=== PATIENT | female | born 1985 | race Hispanic/Latino ===

== ENCOUNTER 2019-05-25 10:45 | Inpatient (IN) | payer BC ==
[2019-05-25 11:13] VITALS: BMI 24.8
[2019-05-25] MEDS ORDERED: HYDROcodone/Acetaminophen 5/325 mg Tablet PO PRN ×3 (11:23→17:18)
[2019-05-25] MEDS ORDERED: Lidocaine 1% (PF) 30 ML VIAL SC PRN (11:23)
[2019-05-25] MEDS ORDERED: Ibuprofen 800 MG TAB PO PRN (11:23)
[2019-05-25] MEDS ORDERED: Ondansetron PF 4 MG/2 ML Vial IVP PRN ×2 (11:23→17:18)
[2019-05-25] MEDS ORDERED: NS / Oxytocin 40 units/1000ml 1,000 ML IV PRN (11:23)
[2019-05-25] MEDS ORDERED: Methylergonovine 0.2 MG/ML VIAL IM PRN (11:23)
[2019-05-25] MEDS ORDERED: Promethazine HCl 25 MG/ML VIAL IM PRN (11:23)
[2019-05-25] MEDS ORDERED: hydrALAZINE 20 MG/ML VIAL SLOW IVP PRN ×2 (11:23→17:18)
[2019-05-25] MEDS ORDERED: Butorphanol Tartrate 1 MG/ML VIAL SLOW IVP PRN (11:23)
[2019-05-25] MEDS ORDERED: Misoprostol 200 MCG TAB PR PRN (11:23)
[2019-05-25] MEDS ORDERED: Lactated Ringer's 1,000 ML IV SCH (11:30)
[2019-05-25] MEDS ORDERED: Lidocaine 1% (PF) 30 ML VIAL ONE (11:32)
[2019-05-25] MEDS ORDERED: NS / Oxytocin 40 units/1000ml 1,000 ML ONE (11:32)
[2019-05-25 11:40] LABS: Hemoglobin 13.3 g/dL (12.0-16.0); Mean Corpuscular HGB CONC 33.2 g/dL (32.0-36.0); Mean Corpuscular Hemoglobin 31.9 pg (27.0-31.0); Mean Corpuscular Volume 96.2 fL (78.0-98.0); Mean Platelet Volume 8.5 fL (7.4-10.4); Platelet Count 207 thou/uL (130-400); RBC Distribution Width 10.8 % (11.5-14.5); Red Blood Cell (RBC) Count 4.15 mill/uL (4.20-5.40); White Blood Cell (WBC) Count 11.2 thou/uL (4.8-10.8)
[2019-05-25] MEDS ORDERED: Butorphanol Tartrate 1 MG/ML VIAL ONE (11:49)
[2019-05-25 15:20] LABS: HBSAg Index 0.14 S/CO (0-0.99); Hep B Surf Ag Non-Reactive S/CO (NonReactive); Syphilis Antibody Nonreactive (Nonreactive); Syphilis Antibody Index 0.19 S/CO (<1.00 Non-Reactive)
--- NOTE | 2019-05-25 16:32 | PDOC.LDHP ---
Labor and Delivery H&P Chief complaint: contractions (with questionable loss of fluid) HPI: Started having contractions at 0500. She did yoga and had a little leaking, but that was the last time. She went to work and was having a regular contractions. At 1030 she came to L&D with regular consistent painful contractions lasting every 2-3 mins Current gestational age (weeks): 38 (2 days) Due date: 06/06/19 Dating criteria: last menstrual period (verified by 1st trimester US) Grav: 1 Para: 0 Current complications: none Abnormal US findings: No Current medications: pre- vitamins Previous surgical history: none Allergies/Adverse Reactions: Allergies Allergy/AdvReac Type Severity Reaction Status Date / Time No Known Allergies Allergy Verified 05/25/19 15:34 Social history: none - Physical Exam Vital signs reviewed and normal: yes General: breathing through contractions Lungs: nonlabored breathing Abdomen: gravid FHT: category 1 - Vaginal Exam cm dilated: 8 Effacement: 100% Station: 2+ - OB Labs Blood type: O RH: positive Antibody Screen: negative HIV: negative RPR: negative HEPSAg: negative 1 hour GCT: negative GBS: negative Urine drug screen: negative Rubella: immune - Assessment L&D Assessment: term patient in labor - Plan Plan: admit to L&D -: Low intervention protocol.
--- NOTE | 2019-05-25 16:38 | PDOC.OPDEL ---
OB Operative/Delivery Note Delivery Dr/Surgeon: Santiago Montgomery Assist: Dr. Vidal Pre-Delivery Diagnosis: active labor Procedure/Post Delivery Dx: other (shoulder dystocia) Anesthesia: none - Findings A Sex: female Weight: 8 lb 11 oz - 1 min: 1 - 5 min: 9 - Additional Findings/Plan Placenta delivered: spontaneous Repaired Obstetrical Laceration: episiotomy (with partial 3rd degree laceration. Repaired by Dr. Vidal.) Estimated blood loss: 350 EBL Compilations/Other Findings: Shoulder dystocia identified. Pt was moved from later pushing position to on her back. Octavio and suprapubic pressure failed to relieve dystocia. Dr. Vidal Called and [facility] team called to room. Wood Screw maneuver used and fetus was rotated from LOT to LINNETTE, rotating the anterior should to the oblique position. head traction applied again and dystocia unresolved. Left hand inserted into the vagina to find posterior arm. I was unable to feel low half of arm or find the wrist to deliver the posterior arm. Dr. Vidal at bedside. Multiple manuevers repeated unsuccessful. Patient was moved to end of bed which was broken down. I then cut a medial episiotomy which allowed delivery of the fetus by Dr. Vidal. The cord was clamped and cut and the was handed off to the waiting [facility] team. Cord blood was collected, then a segment for cord gas was cut. Placenta delivered spontaneously and pitocin was started in the IV. Dr. Vidal repaired the 3rd degree laceration. Post delivery plan: routine recovery
[2019-05-25] MEDS ORDERED: Lanolin Ointment 7 GM TUBE TOP PRN (17:18)
[2019-05-25] MEDS ORDERED: Bisacodyl 10 MG SUPP PR PRN (17:18)
[2019-05-25] MEDS ORDERED: Benzocaine-Menthol 82.5 ML CAN TOP PRN (17:18)
[2019-05-25] MEDS ORDERED: NS / Oxytocin 40 units/1000ml 1,000 ML IV SCH (17:18)
[2019-05-25] MEDS ORDERED: FLU VACC QS2019-20(6MOS UP)/PF 60 MCG/0.5 ML SYRINGE IM ONE (21:00)
[2019-05-25] MEDS: Milk Of Magnesia 30 ML UDCUP PO SCH (22:00)
[2019-05-25] MEDS: Docusate Calcium (SURFAK) 240 MG CAP PO SCH (22:00)
[2019-05-26] MEDS: Ibuprofen 800 MG TAB PO SCH ×5 (00:17→21:37)
--- NOTE | 2019-05-26 01:41 | CON ---
DATE OF CONSULTATION: 05/25/2019 REFERRING PROVIDER: Meghan Montgomery CNM HISTORY OF PRESENT ILLNESS: The patient is a 33-year-old female, who presented to Labor and Delivery in active labor and progressed on her own to complete in the process of delivery, the patient was diagnosed with a shoulder dystocia and I was called to the room. Upon entry, patient was noted to be in the bed with her legs in Octavio position and the head protruding from her vagina with Ms. Meghan Montgomery attempting to deliver and asked for help. Upon my initial evaluation, patient was noted to be in left occiput posterior with the back to mother's left side. The posterior arm was palpated manually. Attempt was made to reach for the wrist to deliver the posterior arm. However, the arm was noted to be lying straight along the baby side and it was difficult to get the arm to bend at the elbow for proper delivery. Attempt was made to deliver with suprapubic pressure without success. The bed at that time was broken down. The patient was brought down to the edge of the bed more completely and midline episiotomy was cut. Without extra room, the anterior shoulder delivered and the infant was delivered without further difficulty. The cord was clamped and cut, and the was handed off flaccid to the waiting attendant, who successfully and quickly resuscitated the baby. Upon evaluation, patient was noted to have third-degree laceration involving nearly the entirety of her anal sphincter with only the superior most cephalad portion intact with 2-0 chromic. With the use of Allis clamps, the capsule was grasped and identified and with four figure of eight suture with 2-0 Vicryl, the superior and anterior quadrants of the anal sphincter were then reapproximated and strengthened. During this process, the rectum was palpated and the mucosa was confirmed to be intact with no suture protruding through the mucosa. With closure reapproximation of the sphincter with an end-to-end connection, a good bulky sphincter was palpable. This remaining second-degree laceration was then closed in the usual fashion, creating a good perineal body. At this point, the care of the patient was turned back over to Ms. Meghan Montgomery. Approximately 30 minutes was spent [id number] with delivery and repair. Of note, blood gas, the baby had a pH of 7.183 and pCO2 of 56. Apgars were 1 and 9. Weight was 3941 g. Delivery was at 1312. Counts were correct and there were no further complications. Quantitative blood loss 300 mL. Mother and baby were stable in the room at the completion of the procedure. Job ID: [id number]
[2019-05-26 06:31] LABS: #Basophils 0.1 thou/uL (0.0-0.2); #Lymphocytes 2.2 thou/uL (1.20-3.40); #Monocytes 1.5 thou/uL (0.11-0.59); #Neutrophils 10.5 thou/uL (1.40-6.50); %Basophils 0.5 % (0.0-1.0); %Eosinophils 0.3 % (0.0-10.0); %Lymphocytes 15.1 % (21.0-51.0); %Monocytes 10.7 % (0.0-10.0); %Neutrophils 73.4 % (42.0-75.0); Mean Corpuscular HGB CONC 34.9 g/dL (32.0-36.0); Mean Corpuscular Volume 97.5 fL (78.0-98.0); Mean Platelet Volume 7.7 fL (7.4-10.4); Platelet Count 184 thou/uL (130-400); RBC Distribution Width 10.9 % (11.5-14.5); Red Blood Cell (RBC) Count 3.23 mill/uL (4.20-5.40); White Blood Cell (WBC) Count 14.3 thou/uL (4.8-10.8)
[2019-05-26] MEDS: Ferrous Sulfate 325 MG TAB PO SCH ×2 (08:12→16:51)
[2019-05-26] MEDS: Docusate Calcium (SURFAK) 240 MG CAP PO SCH ×2 (08:36→21:37)
[2019-05-26] MEDS: Prenatal Vitamin 1 TAB PO SCH (08:36)
[2019-05-26] MEDS ORDERED: Adacel (T-DAP) 0.5 ML SYRINGE IM ONE (09:00)
[2019-05-26] MEDS: Milk Of Magnesia 30 ML UDCUP PO SCH (21:38)
[2019-05-27] MEDS: Ibuprofen 800 MG TAB PO SCH (04:31)
[2019-05-27 08:19] VITALS: BP 124/76; TEMP 98.3
[2019-05-27] MEDS: Ferrous Sulfate 325 MG TAB PO SCH (08:19)
[2019-05-27] MEDS: Prenatal Vitamin 1 TAB PO SCH (08:19)
[2019-05-27] MEDS: Docusate Calcium (SURFAK) 240 MG CAP PO SCH (08:19)
--- NOTE | 2019-05-27 09:26 | PDOC.PP ---
Post Progress Note Post Day #: 1 Subjective: Patient is sore, but overall doing well. The more she moves around the better she it. When she initially shifts her weight is when her bottom is the most sore. is going well. PO intake tolerated: yes Flatus: yes Ambulation: yes Vital Signs (12 hours) Temp Pulse Resp BP Pulse Ox 05/27/19 08:18 98.3 F 79 20 124/76 99 Weight Weight 154 lb - Physical Examination General: NAD Respiratory: non-labored breathing Abdominal: lochia (Minimal) Fundus firm & at: -1 Extremities: negative homans (B) Skin: no rash Perineum: Intact, dry, minimal edema. no erythema. Neurological: no gross focal deficits Psychiatric: A&Ox3, normal affect Result Diagrams: 05/26/19 06:13 Additional Labs: Post Labs Blood Type O POSITIVE 05/25/19 11:26 Hep Bs Antigen Non-Reactive S/CO (NonReactive) 05/25/19 14:30 (1) (spontaneous vaginal delivery) Code(s): O80 - ENCOUNTER FOR FULL-TERM UNCOMPLICATED DELIVERY Status: Acute (2) Shoulder dystocia during labor and delivery, delivered Code(s): O66.0 - OBSTRUCTED LABOR DUE TO SHOULDER DYSTOCIA Status: Acute (3) History of episiotomy Code(s): Z98.890 - OTHER SPECIFIED POSTPROCEDURAL STATES Status: Acute (4) Third degree laceration of perineum during delivery, Code(s): O70.20 - THIRD DEGREE PERINEAL LACERATION DURING DELIVERY, UNSP Status: Acute (5) Primigravida Code(s): Z34.00 - ENCNTR FOR SUPRVSN OF NORMAL FIRST , UNSP TRIMESTER Status: Acute - Assessment/Plan A: G1 now p1 s/p complicated by 2.5min shoulder dystocia, 3rd degree episiotomy and repair P: Routine care Continue milk of mag and additional stool softener. Start sitz baths. Evaluate for discharge tomorrow.
== END 2019-05-27 12:10 | disposition home or self-care (01) | DRG 768 ==
LOC: L&D/OP 10:45 → L&D 12:59 → 3SW 17:51
PROVIDERS: ADMIT Student in an Organized Health Care Education/Training Program; ATTEND Student in an Organized Health Care Education/Training Program
PROC: 10E0XZZ Delivery of Products of Conception, External Approach (ICD-10-PCS; principal; 2019-05-25)
PROC: 0DQR0ZZ Repair Anal Sphincter, Open Approach (ICD-10-PCS; 2019-05-25)
DX: O66.0 Obstructed labor due to shoulder dystocia (principal); Z37.0 Single live birth; O70.20 Third degree perineal laceration during delivery, unspecified; Z3A.38 38 weeks gestation of pregnancy; Z98.890 Other specified postprocedural states
CPT/HCPCS: 36415; 82805; 85025; 85027; 86780; 86850; 86900; 86901; 87340; 90471; 90686; G0008; J0595; J2001

== ENCOUNTER 2024-06-21 08:47 | Outpatient (CLI) | payer BC | END 2024-06-21 08:48 | disposition home or self-care (01) | LOC: SCSRAD 08:47 | PROVIDERS: ATTEND Nurse Practitioner Family | DX: R50.9 Fever, unspecified (principal); J18.9 Pneumonia, unspecified organism; R91.8 Other nonspecific abnormal finding of lung field | CPT/HCPCS: 71046 ==